=== PATIENT | male | born 1945 | race Caucasian/White ===

== ENCOUNTER 2020-09-10 08:35 | Emergency (ER) | payer MEDICARE, OTHER ==
[2020-09-10 22:45] LABS: SARS-CoV-2 MS2 Positive; SARS-CoV-2 N Gene Negative; SARS-CoV-2 S Gene Negative; SARS-CoV-2 by NAA Not Detected (NotDetected); SARS-CoV-2 orf1ab Negative
== END 2020-09-10 09:20 | disposition home or self-care (01) ==
LOC: MADERS 08:35
DX: Z20.828 Contact with and (suspected) exposure to other viral communicable diseases (principal); E78.5 Hyperlipidemia, unspecified; K21.9 Gastro-esophageal reflux disease without esophagitis; I10 Essential (primary) hypertension
CPT/HCPCS: 87635; 99283; U0003